=== PATIENT | male | born 1990 | race Caucasian/White ===

== ENCOUNTER 2019-02-26 19:36 | Emergency (ER) | payer OTHER ==
[~2019-02-26] VITALS: Ht 167.6 cm; Wt 70.3 kg
[2019-02-26 19:47] VITALS: Ht 167.6 cm; Wt 70.3 kg
[2019-02-26 21:24] VITALS: BP 124/75
== END 2019-02-26 21:24 | disposition home or self-care (01) ==
LOC: ED 19:36
DX: R10.30 Lower abdominal pain, unspecified (principal); N50.812 Left testicular pain